=== PATIENT | female | born 1990 | race Hispanic/Latino ===

== ENCOUNTER → 2025-03-23 | Day surgery (SDC) | payer OTHER ==
[~2025-03-23] MED LIST: LIDOCAINE HCL 2% LOCAL INJ 5 ML SDV VIAL INJ ONE; METOCLOPRAMIDE HCL 10 MG/2ML VIAL ONE; ONDANSETRON HCL INJ 2MG/ML 2ML 2 MG/ML VIAL ONE; PROPOFOL IV EMULSION 10 MG/ML 20 ML VIAL ONE; PROTONIX20 MG PO; SODIUM CHLORIDE 0.9% 100 ML ONE
[2025-03-23] MEDS: LACTATED RINGER'S 1,000 ML ONE (06:29)
[2025-03-23 07:35] VITALS: TEMP 97.8
[2025-03-23 08:05] VITALS: BP 117/71; PULSE 74; RESP 14; O2SAT 99
== END | disposition home or self-care (01) ==
LOC: OR 05:36
PROVIDERS: ATTEND Internal Medicine Gastroenterology
DX: K29.70 Gastritis, unspecified, without bleeding (principal); K20.90 Esophagitis, unspecified without bleeding; K44.9 Diaphragmatic hernia without obstruction or gangrene; K31.89 Other diseases of stomach and duodenum; Z68.36 Body mass index [BMI] 36.0-36.9, adult; Z90.49 Acquired absence of other specified parts of digestive tract; Z01.818 Encounter for other preprocedural examination
CPT/HCPCS: 43239; 81025; J2003; J2405; J2470; J2704; J2765; J7050; J7121